=== PATIENT | female | born 1960 | race Caucasian/White ===

== ENCOUNTER 2017-03-28 12:37 | Emergency (ER) | payer OTHER ==
[~2017-03-28] VITALS: Ht 172.7 cm; Wt 83.9 kg
[2017-03-28 12:39] VITALS: BP 146/88
[2017-03-28 13:46] LABS: HEMOGLOBIN 14.7 g/dL (11.7-16.4); WHITE BLOOD COUNT 8.6 x10^3/uL (3.4-10)
[2017-03-28 13:58] LABS: ASPARTATE AMINO TRANSFERASE 25 U/L (15-37); BLOOD UREA NITROGEN 11 mg/dL (7-18)
[2017-03-28 13:58] LABS: DAU SCREEN DISCLAIMER
[2017-03-28 14:07] LABS: ACETAMINOPHEN < 2 mcg/mL (10-30)
[2017-03-28] MEDS ORDERED: POTASSIUM CHLORIDE 10% 40 MEQ/30 ML UDC PO ONE (14:30)
[2017-03-28] MEDS ORDERED: POTASSIUM CHLORIDE 10% 20 MEQ/15 ML UDC ONE (15:43)
== END 2017-03-28 16:10 | disposition home or self-care (01) ==
LOC: ED 14:42
DX: F23 Brief psychotic disorder (principal); F12.10 Cannabis abuse, uncomplicated
CPT/HCPCS: 36415; 70450; 80053; 80307; 80329; 81001; 82962; 84439; 84443; 85025; 87086; 99285; G0479; G0480